=== PATIENT | male | born 1985 | race Hispanic/Latino ===

== ENCOUNTER 2018-02-07 06:18 | Observation (INO) | payer OTHER ==
[2018-02-04 14:19] VITALS: BMI 26.5
[2018-02-07 06:56] LABS: MEAN CORPUSCULAR HEMOGLOBIN 29.9 pg (27.0-31.0); MEAN CORPUSCULAR HGB CONC 33.6 g/dL (33.0-37.0); RBC 5.35 Mil/uL (4.40-5.90); RED CELL DISTRIBUTION WIDTH 12.9 % (11.5-14.5); WHITE BLOOD COUNT 7.7 K/uL (4.8-10.8)
[2018-02-07] MEDS ORDERED: Midazolam 2 MG/2 ML VIAL ONE (07:00)
[2018-02-07] MEDS ORDERED: Propofol 10 mg/ml Inj (20 ML) ONE (07:00)
[2018-02-07] MEDS ORDERED: Lidocaine 4% (Laryng-O-Jet) Kit MM ONE (07:01)
[2018-02-07] MEDS ORDERED: Remifentanil 2 MG PDS IV ONE (07:01)
[2018-02-07] MEDS ORDERED: Rocuronium 10 mg/ml (5 ml) ONE ×4 (07:01→11:33)
[2018-02-07] MEDS ORDERED: Succinylcholine 200 mg/10 ml Inj IV ONE (07:01)
[2018-02-07] MEDS ORDERED: Propofol 10 mg/ml Inj (100 ml) ONE (07:20)
[2018-02-07] MEDS ORDERED: Bupivacaine HCl 0.5% PF (30 ml) Inj ONE (07:56)
[2018-02-07] MEDS ORDERED: MethylPREDNISolone Depo 40 mg/ml Inj ONE (07:56)
[2018-02-07] MEDS ORDERED: Absorbable Gelatin Sponge Size 12-7 ONE (07:56)
[2018-02-07] MEDS ORDERED: Lidocaine 1% Inj (20ml) ONE (07:56)
[2018-02-07] MEDS ORDERED: Thrombin Topical 5,000 Int Units Spray Kit ONE (07:57)
[2018-02-07] MEDS ORDERED: ceFAZolin IV 1 gm in Dextrose 2 GM/100 ML BAG IVPB ONE (07:57)
[2018-02-07] MEDS ORDERED: Lactated Ringer's 1,000 ML IV ONE ×4 (08:45→15:30)
[2018-02-07] MEDS ORDERED: Absorbable Gelatin Sponge Size 12-7 TP ONE (11:07)
[2018-02-07] MEDS ORDERED: Thrombin Topical 5,000 Int Units Spray Kit TOP ONE (11:07)
[2018-02-07] MEDS ORDERED: Sodium Chloride 0.9% 10 ML IV ONE (11:23)
[2018-02-07] MEDS ORDERED: Vancomycin 1 g Inj IVPB ONE ×2 (11:45→12:00)
[2018-02-07] MEDS ORDERED: Neostigmine 1:1000 (1 mg/ml) Inj ONE (11:46)
[2018-02-07] MEDS ORDERED: MethylPREDNISolone Depo 40 mg/ml Inj IM ONE (12:20)
[2018-02-07] MEDS ORDERED: Lidocaine 1% Inj (20ml) IJ ONE (12:20)
[2018-02-07] MEDS: HYDROmorphone 0.5 mg/0.5 ml ISec IVP PRN ×2 (13:25→13:40)
--- NOTE | 2018-02-07 14:32 | RAD ---
Date of service: 02/07/2018 PROCEDURE: Fluoroscopic assistance in excess of 1 hour. HISTORY: Pain COMPARISON: None TECHNIQUE: Total fluoroscopic time (continuous mode) utilized during the procedure 16.0 seconds. FINDINGS: Total exam DLP: 9.20 (mGy). IMPRESSION: Submitted images from the current procedure: 7.0
--- NOTE | 2018-02-07 14:44 | CP.PCM.HP ---
History of Present Illness - History of Present Illness History of Present Illness: 32 yo male with history of IDDM and AFib had spinal fusion of L5S1 after failing conservative management of chronic low back pain since work related injury 7 yrs ago. Present on Admission - Present on Admission Any Indicators Present on Admission: No History of DVT/PE: No History of Uncontrolled Diabetes: No Urinary Catheter: No Decubitus Ulcer Present: No Review of Systems - Review of Systems All systems: reviewed and no additional remarkable complaints except (aside from those mentioned above, 12 point system review were negative by me) Past Patient History - Tetanus Immunizations Tetanus Immunization: Unknown - Past Medical History & Family History Past Medical History?: Yes - Past Social History Smoking Status: Never Smoked Chewing Tobacco Use: No Cigar Use: No Alcohol: Occasional Drugs: Denies Home Situation {Lives}: With Family - CARDIAC Hx Cardiac Disorders: Yes Hx Atrial Fibrillation: Yes Other/Comment: atrial fibrillation - PULMONARY Hx Respiratory Disorders: No - NEUROLOGICAL Hx Neurological Disorder: No - HEENT Hx HEENT Problems: No - RENAL Hx Chronic Kidney Disease: No - ENDOCRINE/METABOLIC Hx Diabetes Mellitus Type 1: Yes (on insulin pump) - HEMATOLOGICAL/ONCOLOGICAL Hx Blood Disorders: No - INTEGUMENTARY Hx Dermatological Problems: No - MUSCULOSKELETAL/RHEUMATOLOGICAL Hx Musculoskeletal Disorders: Yes Hx Back Pain: Yes - GASTROINTESTINAL Hx Gastrointestinal Disorders: No - GENITOURINARY/GYNECOLOGICAL Hx Genitourinary Disorders: No - PSYCHIATRIC Hx Psychophysiologic Disorder: No - SURGICAL HISTORY Hx Surgeries: Yes Other/Comment: 2013-laminectomy - ANESTHESIA Hx Anesthesia: Yes Hx Anesthesia Reactions: No Has any member of the family had a problem w/ anesthesia?: No Meds Allergies/Adverse Reactions: Allergies Allergy/AdvReac Type Severity Reaction Status Date / Time No Known Allergies Allergy Verified 02/04/18 14:10 Physical Exam - Constitutional Appears: No Acute Distress - Head Exam Head Exam: ATRAUMATIC - Eye Exam Eye Exam: absent: Scleral icterus - ENT Exam ENT Exam: Mucous Membranes Moist - Neck Exam Neck exam: Negative for: Meningismus - Respiratory Exam Respiratory Exam: absent: Rales, Rhonchi, Wheezes, Respiratory Distress - Cardiovascular Exam Cardiovascular Exam: REGULAR RHYTHM, +S1, +S2 - GI/Abdominal Exam GI & Abdominal Exam: Soft. absent: Tenderness - Rectal Exam Rectal Exam: Deferred - Extremities Exam Extremities exam: Negative for: calf tenderness, pedal edema - Neurological Exam Neurological exam: Alert, Oriented x3 - Psychiatric Exam Psychiatric exam: Normal Affect - Skin Skin Exam: Dry, Intact Results - Vital Signs Recent Vital Signs: Last Vital Signs Temp 97 F L 02/07/18 06:48 Pulse 100 H 02/07/18 06:51 Resp 20 02/07/18 06:48 BP 145/91 H 02/07/18 07:06 Pulse Ox 100 02/07/18 06:48 - Labs Result Diagrams: 02/07/18 06:40 Labs: Laboratory Results - last 24 hr 02/07/18 02/07/18 02/07/18 06:40 06:40 07:02 WBC 7.7 RBC 5.35 Hgb 16.0 Hct 47.6 MCV 89.0 MCH 29.9 MCHC 33.6 RDW 12.9 Plt Count 275 POC Glucose (mg/dL) 210 H Blood Type O POSITIVE Blood Type Confirm Antibody Screen Negative BBK History Checked No verified bt 02/07/18 02/07/18 02/07/18 08:41 09:29 10:40 WBC RBC Hgb Hct MCV MCH MCHC RDW Plt Count POC Glucose (mg/dL) 269 H 231 H Blood Type Blood Type Confirm O POSITIVE Antibody Screen BBK History Checked 02/07/18 02/07/18 02/07/18 11:35 12:44 13:45 WBC RBC Hgb Hct MCV MCH MCHC RDW Plt Count POC Glucose (mg/dL) 222 H 246 H 210 H Blood Type Blood Type Confirm Antibody Screen BBK History Checked Assessment & Plan - Assessment and Plan (Free Text) Assessment: 32 yo male with history of IDDM and AFib had spinal fusion of L5S1 after failing conservative management of chronic low back pain since work related injury 7 yrs ago. 1. S/P Spinal Fusion L5S1 continue pain management with Dilaudid via [employer] will need another dose of Cefazolin 2gm for prophylaxis PT evaluation and management in am 2. DM1 patient on insulin pump accuchek q 2hrs and cover per patient's home dose HgA1C, BMP in am 3. DVT prophylaxis venodyne boots while in bed
[2018-02-07] MEDS: Lactated Ringer's 1,000 ML IV SCH ×2 (16:58→22:32)
[2018-02-07] MEDS ORDERED: ceFAZolin IV 2 gm in Dextrose 2 GM/50 ML BAG IVPB ONE (17:00)
[2018-02-08 07:32] LABS: BLOOD UREA NITROGEN 10 mg/dl (9-20); CALCIUM 9.1 mg/dL (8.4-10.2); GFR NON-AFRICAN AMERICAN > 60
[2018-02-08 08:14] LABS: BASO % 0.1 % (0.0-2.0); EOS % 0.2 % (0.0-4.0); HEMOGLOBIN 13.3 g/dL (12.0-18.0); LYMPH # 1.7 K/uL (1.0-4.3); LYMPH % 13.3 % (20.0-40.0); MEAN CELL VOLUME 89.3 fl (80.0-94.0); MEAN CORPUSCULAR HEMOGLOBIN 29.6 pg (27.0-31.0); MEAN CORPUSCULAR HGB CONC 33.2 g/dL (33.0-37.0); MEAN PLATELET VOLUME 8.7 fl (7.2-11.7); MONO % 7.3 % (0.0-10.0); NEUT # 10.3 K/uL (1.8-7.0); NEUT % 79.1 % (50.0-75.0); RBC 4.48 Mil/uL (4.40-5.90); RED CELL DISTRIBUTION WIDTH 12.7 % (11.5-14.5); WHITE BLOOD COUNT 13.1 K/uL (4.8-10.8)
[2018-02-08] MEDS ORDERED: Pantoprazole 40 mg EC Tab PO SCH (09:00)
[2018-02-08] MEDS ORDERED: Oxycodone/Acetaminophen 5/325 mg Tab PO ONE ×3 (10:32→17:17)
[2018-02-08 16:19] VITALS: BP 126/83; PULSE 109; RESP 16; TEMP 98.4; O2SAT 96
--- NOTE | 2018-02-08 17:18 | CP.PCM.DIS ---
<Gio Rhodes - Last Filed: 02/08/18 17:52> Provider - Provider Date of Admission: 02/07/18 13:55 Attending physician: Keyur Guillen MD Time Spent in preparation of Discharge (in minutes): 30 Hospital Course - Lab Results Lab Results: Most Recent Lab Values WBC 13.1 K/uL (4.8-10.8) H D 02/08/18 06:00 RBC 4.48 Mil/uL (4.40-5.90) 02/08/18 06:00 Hgb 13.3 g/dL (12.0-18.0) D 02/08/18 06:00 Hct 40.0 % (35.0-51.0) 02/08/18 06:00 MCV 89.3 fl (80.0-94.0) 02/08/18 06:00 MCH 29.6 pg (27.0-31.0) 02/08/18 06:00 MCHC 33.2 g/dL (33.0-37.0) 02/08/18 06:00 RDW 12.7 % (11.5-14.5) 02/08/18 06:00 Plt Count 224 K/uL (130-400) 02/08/18 06:00 MPV 8.7 fl (7.2-11.7) 02/08/18 06:00 Neut % (Auto) 79.1 % (50.0-75.0) H 02/08/18 06:00 Lymph % (Auto) 13.3 % (20.0-40.0) L 02/08/18 06:00 [place] % (Auto) 7.3 % (0.0-10.0) 02/08/18 06:00 Eos % (Auto) 0.2 % (0.0-4.0) 02/08/18 06:00 Baso % (Auto) 0.1 % (0.0-2.0) 02/08/18 06:00 Neut # (Auto) 10.3 K/uL (1.8-7.0) H 02/08/18 06:00 Lymph # (Auto) 1.7 K/uL (1.0-4.3) 02/08/18 06:00 [place] # (Auto) 1.0 K/uL (0.0-0.8) H 02/08/18 06:00 Eos # (Auto) 0.0 K/uL (0.0-0.7) 02/08/18 06:00 Baso # (Auto) 0.0 K/uL (0.0-0.2) 02/08/18 06:00 Sodium 137 mmol/l (132-148) 02/08/18 06:00 Potassium 4.3 MMOL/L (3.6-5.0) 02/08/18 06:00 Chloride 99 mmol/L (98-107) 02/08/18 06:00 Carbon Dioxide 29 mmol/L (22-30) 02/08/18 06:00 Anion Gap 13 (10-20) 02/08/18 06:00 BUN 10 mg/dl (9-20) 02/08/18 06:00 Creatinine 0.7 mg/dl (0.8-1.5) L 02/08/18 06:00 Est GFR ( Amer) > 60 02/08/18 06:00 Est GFR (Non-Af Amer) > 60 02/08/18 06:00 POC Glucose (mg/dL) 229 mg/dL (65-110) H 02/08/18 16:07 Random Glucose 192 mg/dL (75-110) H 02/08/18 06:00 Calcium 9.1 mg/dL (8.4-10.2) 02/08/18 06:00 Blood Type O POSITIVE 02/07/18 06:40 Blood Type Confirm O POSITIVE 02/07/18 08:41 Antibody Screen Negative 02/07/18 06:40 BBK History Checked No verified bt 02/07/18 06:40 - Hospital Course Hospital Course: 32 yo M with past medical history of IDDM and AFib s/p spinal fusion of L5-S1 after failing conservative management for chronic low back pain due to work related injury, approximately 7 yrs prior. Surgeon: Dr. Petersen 02/07/2018: Anterior Lumbar laminectomy with fusion under general anesthesia. Patient tolerated the procedure well. Prophylaxis abx: Cefazolin 2 gm DM1: Insulin pump Pain management: Dilaudid PO and 0.2 mg/ml ADMISSION NURSE COORDINATOR PT evaluation and treat with appropriate ambulation while using walker. On day of discharge, pt transitioned from Dilaudid ADMISSION NURSE COORDINATOR to Percocet 5/325 mg PO q6h PRN #20. Prescription provided for walker. D/c home to follow with Dr. Petersen in 3-5 days and with PMD. ER precautions reviewed with patient, mother and partner. Case dw Dr. Jayy Rhodes MD PGY2 Discharge Exam - Head Exam Head Exam: ATRAUMATIC - Eye Exam Eye Exam: EOMI Pupil Exam: Fixed, PERRL - ENT Exam ENT Exam: Mucous Membranes Moist - Respiratory Exam Respiratory Exam: Clear to PA & Lateral, NORMAL BREATHING PATTERN, UNREMARKABLE. absent: Wheezes - Cardiovascular Exam Cardiovascular Exam: REGULAR RHYTHM, +S1, +S2 - GI/Abdominal Exam GI & Abdominal Exam: Normal Bowel Sounds, Tenderness (at incision) - Extremities Exam Extremities exam: full ROM - Neurological Exam Neurological exam: Abnormal Gait (2/2 to hx of surgery), Alert, CN II-XII Intact, Oriented x3 - Psychiatric Exam Psychiatric exam: Normal Affect, Normal Mood Discharge Plan - Discharge Medications Prescriptions: Metoclopramide [Reglan] 5 mg PO Q6 #6 tab oxyCODONE/Acetaminophen [Percocet 5/325 mg Tab] 1 ea PO Q6 PRN #20 tab PRN Reason: Pain, Moderate (4-7) - Follow Up Plan Condition: GOOD Disposition: HOME/ ROUTINE Instructions: Spinal Fusion (DC), Postspine Surgery Precautions Additional Instructions: Discharge home. Pain management: Percocet 5/325 mg PO q 6hr PRN. Colace PRN for constipation Pt to follow up with [facility] in 3-5 days. Referrals: Jero Petersen MD [Provisional Staff] - <Beverly Hope - Last Filed: 02/09/18 09:19> Provider - Provider Date of Admission: 02/07/18 13:55 Attending physician: Keyur Guillen MD Hospital Course - Lab Results Lab Results: Most Recent Lab Values WBC 13.1 K/uL (4.8-10.8) H D 02/08/18 06:00 RBC 4.48 Mil/uL (4.40-5.90) 02/08/18 06:00 Hgb 13.3 g/dL (12.0-18.0) D 02/08/18 06:00 Hct 40.0 % (35.0-51.0) 02/08/18 06:00 MCV 89.3 fl (80.0-94.0) 02/08/18 06:00 MCH 29.6 pg (27.0-31.0) 02/08/18 06:00 MCHC 33.2 g/dL (33.0-37.0) 02/08/18 06:00 RDW 12.7 % (11.5-14.5) 02/08/18 06:00 Plt Count 224 K/uL (130-400) 02/08/18 06:00 MPV 8.7 fl (7.2-11.7) 02/08/18 06:00 Neut % (Auto) 79.1 % (50.0-75.0) H 02/08/18 06:00 Lymph % (Auto) 13.3 % (20.0-40.0) L 02/08/18 06:00 [place] % (Auto) 7.3 % (0.0-10.0) 02/08/18 06:00 Eos % (Auto) 0.2 % (0.0-4.0) 02/08/18 06:00 Baso % (Auto) 0.1 % (0.0-2.0) 02/08/18 06:00 Neut # (Auto) 10.3 K/uL (1.8-7.0) H 02/08/18 06:00 Lymph # (Auto) 1.7 K/uL (1.0-4.3) 02/08/18 06:00 [place] # (Auto) 1.0 K/uL (0.0-0.8) H 02/08/18 06:00 Eos # (Auto) 0.0 K/uL (0.0-0.7) 02/08/18 06:00 Baso # (Auto) 0.0 K/uL (0.0-0.2) 02/08/18 06:00 Sodium 137 mmol/l (132-148) 02/08/18 06:00 Potassium 4.3 MMOL/L (3.6-5.0) 02/08/18 06:00 Chloride 99 mmol/L (98-107) 02/08/18 06:00 Carbon Dioxide 29 mmol/L (22-30) 02/08/18 06:00 Anion Gap 13 (10-20) 02/08/18 06:00 BUN 10 mg/dl (9-20) 02/08/18 06:00 Creatinine 0.7 mg/dl (0.8-1.5) L 02/08/18 06:00 Est GFR ( Amer) > 60 02/08/18 06:00 Est GFR (Non-Af Amer) > 60 02/08/18 06:00 POC Glucose (mg/dL) 229 mg/dL (65-110) H 02/08/18 16:07 Random Glucose 192 mg/dL (75-110) H 02/08/18 06:00 Calcium 9.1 mg/dL (8.4-10.2) 02/08/18 06:00 Blood Type O POSITIVE 02/07/18 06:40 Blood Type Confirm O POSITIVE 02/07/18 08:41 Antibody Screen Negative 02/07/18 06:40 BBK History Checked No verified bt 02/07/18 06:40 Attending/Attestation - Attestation I have personally seen and examined this patient.: Yes I have fully participated in the care of the patient.: Yes I have reviewed all pertinent clinical information, including history, physical exam and plan: Yes Notes (Text): 02/09/18 09:18 Seen examined and discussed with resident. Agree with findings and plan as above.
== END 2018-02-08 17:35 | disposition home or self-care (01) ==
LOC: H.OPSURG 06:18 → H.ERHOLD 13:55 → H.TEL 16:09
DX: M51.16 Intervertebral disc disorders with radiculopathy, lumbar region (principal); M48.061 Spinal stenosis, lumbar region without neurogenic claudication; G89.29 Other chronic pain; M54.5 Low back pain; I48.91 Unspecified atrial fibrillation; E10.9 Type 1 diabetes mellitus without complications; Z79.4 Long term (current) use of insulin; Z96.41 Presence of insulin pump (external) (internal); Z98.1 Arthrodesis status; X58.XXXS Exposure to other specified factors, sequela; Y99.0 Civilian activity done for income or pay
CPT/HCPCS: 20930; 22558; 22845; 36415; 80048; 82948; 85025; 85027; 86850; 86900; 88304; 96374; 96376; 97162; C1713; G0378; G8978; G8979; G8980; J0131; J0330; J0690; J1030; J1170; J1644; J2001; J2175; J2250; J2405; J2704; J2710; J2765; J3010; J7030; J7120